=== PATIENT | male | born 1990 | race Caucasian/White ===

== ENCOUNTER 2017-07-13 16:56 | Emergency (ER) | payer SELFPAY ==
[~2017-07-13] VITALS: Ht 165.1 cm; Wt 90.0 kg
[2017-07-13] MEDS ORDERED: TETANUS, DIPHTHERIA, PERTUSSIS VAC/PF 0.5ML (>7YR OLD) IM ONE (19:30)
[2017-07-13 22:12] VITALS: BP 128/80
== END 2017-07-13 22:13 | disposition home or self-care (01) ==
LOC: ER 17:25
DX: S09.8XXA Other specified injuries of head, initial encounter (principal); S62.309A Unspecified fracture of unspecified metacarpal bone, initial encounter for closed fracture; V00.131A Fall from skateboard, initial encounter; Y93.51 Activity, roller skating (inline) and skateboarding; F17.200 Nicotine dependence, unspecified, uncomplicated; F12.10 Cannabis abuse, uncomplicated; Z23 Encounter for immunization
CPT/HCPCS: 29125; 70450; 73130; 90471; 90715; 99284; A4217